=== PATIENT | male | born 1955 | race Caucasian/White ===

== ENCOUNTER 2022-09-18 23:28 | Emergency (ER) | payer MEDICARE ==
[~2022-09-18] VITALS: Ht 188 cm; Wt 122.5 kg
[2022-09-18] MEDS ORDERED: WARFARIN SODIUM1 MG PO (23:55)
[2022-09-18] MEDS ORDERED: SOTALOL80 MG PO (23:55)
[2022-09-18] MEDS ORDERED: ATORVASTATIN CA80 MG PO (23:55)
[2022-09-19] MEDS ORDERED: AMOX TR-K CLV1 EAC1 PO (01:17)
[2022-09-19 01:46] VITALS: BP 128/78
== END 2022-09-19 01:48 | disposition home or self-care (01) ==
LOC: ED 23:28
DX: R04.0 Epistaxis (principal); I10 Essential (primary) hypertension; Z79.899 Other long term (current) drug therapy; Z79.01 Long term (current) use of anticoagulants
CPT/HCPCS: 30905; 36415; 80053; 85025; 85610; 85730; 99283-25; A9270

== ENCOUNTER 2023-11-23 22:24 | Emergency (ER) | payer MEDICARE ==
[~2023-11-23] VITALS: Ht 188 cm; Wt 124.0 kg
[~2023-11-23 22:24] MED LIST: AMOX TR-K CLV1 EAC1 PO; ATORVASTATIN CA80 MG PO; SOTALOL80 MG PO; WARFARIN SODIUM1 MG PO
[2023-11-23 22:55] LABS: BASOPHILS 0.7 % (0-2); EOSINOPHILS 3.8 % (0-6); HEMATOCRIT 43.4 % (35.0-50.0); HEMOGLOBIN 14.3 g/dL (12.0-18.0); MCH 29.1 (27-36); MCV 88.2 fl (81-99); MONOCYTES 12.5 % (0-12); PLATELET COUNT 138 K/uL (140-440); RBC 4.92 M/ul (4.3-5.7); RDW 14.8 (10.5-15.0)
[2023-11-23 23:06] LABS: INR 2.57 (0.80-1.30); PROTIME 26.6 Sec (11.2-14.2)
[2023-11-23 23:10] LABS: ALBUMIN 3.6 g/dL (3.4-5.0); ANION GAP 11.9 (7-21); BILIRUBIN, TOTAL 1.5 ng/dL (0.2-1.0); BUN/CREATININE RATIO 16.66 (6.0-28.6); CALCIUM 8.6 mg/dL (8.5-10.1); CREATININE, SERUM 1.32 mg/dL (0.70-1.30); POTASSIUM 3.9 mmol/L (3.5-5.1); PROTEIN, TOTAL 7.2 g/dL (6.4-8.2)
[2023-11-24 00:14] VITALS: BP 121/86
== END 2023-11-24 00:17 | disposition home or self-care (01) ==
LOC: ED 22:24
PROVIDERS: Internal Medicine
DX: M79.81 Nontraumatic hematoma of soft tissue (principal); I10 Essential (primary) hypertension; Z79.01 Long term (current) use of anticoagulants; Z79.899 Other long term (current) drug therapy
CPT/HCPCS: 36415; 80053; 85025; 85610